=== PATIENT | female | born 1975 | race Hispanic/Latino ===

== ENCOUNTER 2021-01-05 10:53 | Outpatient (CLI) | payer OTHER | END 2021-01-05 10:54 | disposition home or self-care (01) | LOC: BICMAMMO 10:53 | PROVIDERS: ATTEND Nurse Practitioner Family | DX: Z12.31 Encounter for screening mammogram for malignant neoplasm of breast (principal) | CPT/HCPCS: 77063; 77067 ==

== ENCOUNTER 2022-11-11 10:12 | Outpatient (CLI) | payer OTHER | END 2022-11-11 10:13 | disposition home or self-care (01) | LOC: BICMAMMO 10:12 | PROVIDERS: ATTEND Nurse Practitioner Family | DX: Z12.31 Encounter for screening mammogram for malignant neoplasm of breast (principal) | CPT/HCPCS: 77063; 77067 ==

== ENCOUNTER 2023-12-01 13:00 | Outpatient (CLI) | payer OTHER | END 2023-12-01 13:01 | disposition home or self-care (01) | LOC: BICMAMMO 13:00 | PROVIDERS: ATTEND Nurse Practitioner Family | DX: Z12.31 Encounter for screening mammogram for malignant neoplasm of breast (principal); Z80.3 Family history of malignant neoplasm of breast | CPT/HCPCS: 77063; 77067 ==

== ENCOUNTER 2024-12-12 15:05 | Outpatient (CLI) | payer OTHER | END 2024-12-12 15:06 | disposition home or self-care (01) | LOC: BICMAMMO 15:05 | PROVIDERS: ATTEND Nurse Practitioner Family | DX: Z12.31 Encounter for screening mammogram for malignant neoplasm of breast (principal); Z80.3 Family history of malignant neoplasm of breast | CPT/HCPCS: 77063; 77067 ==